=== PATIENT | female | born 1990 | race Caucasian/White ===

== ENCOUNTER 2019-04-10 07:09 | Inpatient (IN) | payer BC ==
[2019-04-10] MEDS ORDERED: Misoprostol 50 MCG (1/2 of 100 MCG) Tab ONE (07:54)
[2019-04-10] MEDS ORDERED: Sodium Chloride 0.9% 10 ML Syringe FLUSH PRN (08:02)
[2019-04-10] MEDS ORDERED: Acetaminophen 325 MG Tab PO PRN (08:02)
[2019-04-10] MEDS ORDERED: fentaNYL 100 MCG/2 ML SDV IVPUSH PRN (08:02)
[2019-04-10] MEDS ORDERED: Ondansetron 4 MG/2 ML SDV IV PRN (08:02)
[2019-04-10] MEDS ORDERED: Calcium Carbonate 500 MG Tab.Chew PO PRN (08:02)
[2019-04-10] MEDS ORDERED: Albuterol 8 GM Inhaler INH PRN (08:07)
[2019-04-10] MEDS ORDERED: ePHEDrine 50 MG/ML SDV IVPUSH PRN (08:09)
[2019-04-10] MEDS ORDERED: Lactated Ringers 1,000 ML IV ONE (08:09)
--- NOTE | 2019-04-10 08:17 | PCM.LDHP ---
L&D History of Present Illness - General Date of Service: 04/10/19 Admit Problem/Dx: Patient Status Order with Admit Dx/Problem 04/10/19 08:02 Patient Status [ADT] Routine Admission Diagnosis/Problem Admission Diagnosis/Problem Term Source of Information: Patient History Limitations: Reports: No Limitations - History of Present Illness Introduction:: 04/10/19 28 yo at 40 5/7 weeks is here for a labor induction for post dates. SVE this am is /. She has not felt contractions at home but is garret every 6-8 min here on the monitor. FHT category 1. 50 mcg of cytotec inserted vaginally. Membranes intact. Pt is GBS negative and all STI testing was negative. Blood type 0+. Pt had an uncomplicated . Anticipate . 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 Para: 0 LMP (Approximate): Psychiatric History: Reports: Anxiety, PTSD Social & Family History - Family History Family Medical History: Noncontributory - Tobacco Use Smoking Status *Q: Never Smoker Second Hand Smoke Exposure: No H&P Review of Systems - Review of Systems: Review Of Systems: See Below General: Reports: No Symptoms HEENT: Reports: No Symptoms Pulmonary: Reports: Cough (asthma) Cardiovascular: Reports: No Symptoms Gastrointestinal: Reports: No Symptoms Genitourinary: Reports: No Symptoms Musculoskeletal: Reports: No Symptoms Skin: Reports: No Symptoms Psychiatric: Reports: No Symptoms Neurological: Reports: No Symptoms Hematologic/Lymphatic: Reports: No Symptoms Immunologic: Reports: No Symptoms L&D Exam - Exam Exam: See Below - Vital Signs Weight: 167 lb 8.821 oz - OB Specific Contraction Intensity: Mild Movement: Active Heart Tones: Present Heart Rate (FHR) Variability: Moderate (6-25 bmp) Presentation: Vertex - Montoya Score Montoya Score Cervix Position: Posterior Montoya Score Consistency: Medium Montoya Score Effacement: 51-70% Montoya Score Dilation: 1-2 cm Montoya Score Infant's Station: -1 ,0 Montoya Score Total: 6 - Exam General: Alert, Oriented HEENT: PERRLA, Conjunctiva Clear, EACs Clear, EOMI, Hearing Intact, Mucosa Moist & [place], Nares Patent, Normal Nasal Septum, Posterior Pharynx Clear, TMs Clear Neck: Supple, Trachea Midline Lungs: Clear to Auscultation, Normal Respiratory Effort Cardiovascular: Regular Rate, Regular Rhythm GI/Abdominal Exam: Normal Bowel Sounds, Soft, Non-Tender, No Organomegaly, No Distention, No Abnormal Bruit, No Mass, Pelvis Stable Rectal Exam: Normal Exam, Normal Rectal Tone Genitourinary: Normal external exam, Normal bimanual exam, Enlarged uterus. No : Vaginal bleeding, Vaginal discharge Back Exam: Normal Inspection, Full Range of Motion Extremities: Normal Inspection, Normal Range of Motion, Non-Tender, No Pedal Edema, Normal Capillary Refill Skin: Warm, Dry, Intact Neurological: Cranial Nerves Intact, Reflexes Equal Bilateral Psychiatric: Alert, Normal Affect, Normal Mood - Patient Data Lab Results Last 24 hrs: Laboratory Results - last 24 hr 04/10/19 04/10/19 Range/Units 07:27 07:35 WBC 11.1 H (4.5-11.0) K/uL RBC 4.25 (3.30-5.50) M/uL Hgb 10.6 L (12.0-15.0) g/dL Hct 34.1 L (36.0-48.0) % MCV 80 (80-98) fL MCH 25 L (27-31) pg MCHC 31 L (32-36) % Plt Count 373 (150-400) K/uL Neut % (Auto) 60 (36-66) % Lymph % (Auto) 23 L (24-44) % [place] % (Auto) 14 H (2-6) % Eos % (Auto) 3 (2-4) % Baso % (Auto) 0 (0-1) % Urine Color Yellow (YELLOW) Urine Appearance Slightly cloudy A (CLEAR) Urine pH 7.0 (5.0-8.0) Ur Specific [place] 1.020 (1.008-1.030) Urine Protein Negative (NEGATIVE) mg/dL Urine Glucose (UA) Negative (NEGATIVE) mg/dL Urine Ketones Negative (NEGATIVE) mg/dL Urine Occult Blood Negative (NEGATIVE) Urine Nitrite Negative (NEGATIVE) Urine Bilirubin Negative (NEGATIVE) Urine Urobilinogen 0.2 (0.2-1.0) EU/dL Ur Leukocyte Esterase Moderate (NEGATIVE) Urine RBC 0-5 (0-5) Urine WBC 20-30 H (0-5) Ur Epithelial Cells Many Amorphous Sediment Not seen Urine Bacteria Many Urine Mucus Few Result Diagrams: 04/10/19 07:35 - Problem List (1) Term SNOMED Code(s): 54053331 ICD Code: Z34.90 - ENCNTR FOR SUPRVSN OF NORMAL , UNSP, UNSP TRIMESTER Status: Acute Current Visit: Yes (2) Elective induction of labor planned SNOMED Code(s): 819605223 ICD Code: [id number] - Status: Acute Current Visit: Yes (3) Mother negative for group B Streptococcus colonization SNOMED Code(s): 785253442, 575040876 ICD Code: QSZ0794 - Status: Acute Current Visit: Yes Problem List Initiated/Reviewed/Updated: Yes Orders Last 24hrs: Active Orders 24 hr Category Date Time Status Patient Status [ADT] Routine ADT 04/10/19 08:02 Ordered Communication Order [RC] ASDIRECTED Care 04/10/19 08:02 Ordered Communication Order [RC] ASDIRECTED Care 04/10/19 08:10 Ordered Heart Tones [RC] PER UNIT ROUTINE Care 04/10/19 08:02 Ordered Insert Urinary Catheter [OM.PC] ASDIRECTED Care 04/10/19 08:15 Ordered Local Anesthetic Infusion Pump [RC] ASDIRECTED Care 04/10/19 08:10 Ordered Notify Provider Vital Signs [RC] PRN Care 04/10/19 08:06 Ordered Notify Provider [RC] PRN Care 04/10/19 08:02 Ordered PCEA Epidural [RC] ASDIRECTED Care 04/10/19 08:10 Ordered PCEA Epidural [RC] ASDIRECTED Care 04/10/19 08:10 Ordered Up ad Silvana [RC] ASDIRECTED Care 04/10/19 08:02 Ordered Urinary Catheter Assessment [RC] ASDIRECTED Care 04/10/19 08:10 Ordered Vital Signs [RC] PER UNIT ROUTINE Care 04/10/19 08:02 Ordered Regular Diet [DIET] Diet 04/10/19 Breakfast Ordered DRUG SCREEN, URINE [URCHEM] Routine Lab 04/10/19 08:02 Ordered UA W/MICROSCOPIC [URIN] Routine Lab 04/10/19 08:02 Ordered Acetaminophen [Tylenol] Med 04/10/19 08:02 Ordered 650 mg PO Q4H PRN Albuterol [Ventolin HFA] Med 04/10/19 08:07 Ordered 2 gm INH Q2H PRN Calcium Carbonate [Tums] Med 04/10/19 08:02 Ordered 1,000 mg PO Q2HR PRN Fluticasone/Salmeterol [Fluticasone-Salmeterol 232-14 Med 04/10/19 21:00 Ordered MCG Powder Inha] 1 puff INH BIDRT Lactated Ringers [Ringers, Lactated] 1,000 ml Med 04/10/19 08:09 Ordered IV .BOLUS Ondansetron [Zofran] Med 04/10/19 08:02 Ordered 4 mg IV Q4H PRN Sodium Chloride 0.9% [Saline Flush] Med 04/10/19 08:02 Ordered 10 ml FLUSH ASDIRECTED PRN ePHEDrine [ePHEDrine sulfate] Med 04/10/19 08:09 Ordered 10 mg IVPUSH ASDIRECTED PRN fentaNYL [Sublimaze] Med 04/10/19 08:02 Ordered 100 mcg IVPUSH Q1H PRN Epidural Catheter Management [OM.PC] Urgent Oth 04/10/19 08:10 Ordered Saline Lock Insert [OM.PC] Routine Oth 04/10/19 08:02 Ordered Resuscitation Status Routine Resus Stat 04/10/19 08:02 Ordered Medication Orders Acetaminophen (Tylenol) 650 mg PO Q4H PRN PRN Reason: Pain (Mild 1-3) and fever Albuterol (Ventolin Hfa) 2 gm INH Q2H PRN PRN Reason: Dyspnea Calcium Carbonate/Glycine (Tums) 1,000 mg PO Q2H PRN PRN Reason: Indigestion Ephedrine Sulfate (Ephedrine Sulfate) 10 mg IVPUSH ASDIRECTED PRN PRN Reason: Hypotension Fentanyl (Sublimaze) 100 mcg IVPUSH Q1H PRN PRN Reason: Pain (moderate 4-6) Lactated Ringer's (Ringers, Lactated) 1,000 mls @ 999 mls/hr IV .BOLUS ONE Stop: 04/10/19 09:09 Ondansetron HCl (Zofran) 4 mg IV Q4H PRN PRN Reason: Nausea/Vomiting Sodium Chloride (Saline Flush) 10 ml FLUSH ASDIRECTED PRN PRN Reason: Keep Vein Open Assessment/Plan Comment:: 04/10/19 Assessment: 28 yo at 40 5/7 weeks here for elective induction of labor SVE /-1, montoya score 6 Category 1 tracing Plan: Anticipate Will recheck cervix at noon and possibly do another dose of Cytotec vaginally vs Pitocin IV Anticipate female infant Nurse to call if patient desires an epidural
[2019-04-10] MEDS: Fluticasone-Salmeterol 232-14 MCG Powder Inhalent INH SCH ×2 (10:01→21:51)
[2019-04-10] MEDS ORDERED: Misoprostol 25 MCG (1/4 of 100 MCG) Tab ONE (12:18)
--- NOTE | 2019-04-10 12:26 | PCM.PNLD ---
Labor Progress Note - VS & Meds Vital Signs: Last Vital Signs Temp 96.6 F 04/10/19 08:00 Pulse 77 04/10/19 09:00 Resp 20 04/10/19 09:00 BP 139/88 04/10/19 09:00 Pulse Ox Active Medications: Current Medications Acetaminophen (Tylenol) 650 mg PO Q4H PRN PRN Reason: Pain (Mild 1-3) and fever Albuterol (Ventolin Hfa) 0 gm INH Q2H PRN PRN Reason: Dyspnea Calcium Carbonate/Glycine (Tums) 1,000 mg PO Q2H PRN PRN Reason: Indigestion Ephedrine Sulfate (Ephedrine Sulfate) 10 mg IVPUSH ASDIRECTED PRN PRN Reason: Hypotension Fentanyl (Sublimaze) 100 mcg IVPUSH Q1H PRN PRN Reason: Pain (moderate 4-6) Ondansetron HCl (Zofran) 4 mg IV Q4H PRN PRN Reason: Nausea/Vomiting Fluticasone/Salmeterol (Fluticasone-Salmeterol 232-14 Mcg Powder Inha) 1 puff INH BIDRT YARITZA Last Admin: 04/10/19 10:01 Dose: 1 puff Sodium Chloride (Saline Flush) 10 ml FLUSH ASDIRECTED PRN PRN Reason: Keep Vein Open Discontinued Medications Lactated Ringer's (Ringers, Lactated) 1,000 mls @ 999 mls/hr IV .BOLUS ONE Stop: 04/10/19 09:09 Misoprostol (Cytotec) Confirm Administered Dose 50 mcg .ROUTE .STK-MED ONE Stop: 04/10/19 07:55 Last Admin: 04/10/19 08:03 Dose: 50 mcg Misoprostol (Cytotec) Confirm Administered Dose 25 mcg .ROUTE .STK-MED ONE Stop: 04/10/19 12:19 - Uterine Contractions Uterine Monitoring Mode: External [place] Contraction Frequency (min): 1-3.5 Contraction Duration (sec): 30-60 Contraction Intensity: Mild Uterine Resting Tone: Soft - Monitoring Heart Rate (FHR) Variability: Moderate (6-25 bmp) Accelerations: Present, 15x15 Decelerations: None Strip Review: Category I - Vaginal Exam Dilation (cm): 1.5 Effacement (Percent): 70 Station: -1 Cervical Position: Posterior Sterile Vaginal Exam Performed By: Henna Sandhu - Labor Progress (Free Text) Labor Progress: 04/10/19 Patient has made very little cervical change. SVE 1.5/-1. Cervix still fairly firm, no bloody show. She is not feeling pain with the contractions but does feel some tightening in her low abdomen. Placed another dose of 25 mcg Cytotec vaginally. Will recheck cervix in 4 hours and if no change will consider discharge home and attempt induction later this week again. Patient agrees to plan. Category 1 tracing.
[2019-04-10] MEDS ORDERED: fentaNYL 100 MCG/2 ML SDV IVPUSH ONE (15:28)
--- NOTE | 2019-04-10 16:48 | PCM.PNLD ---
Labor Progress Note - VS & Meds Vital Signs: Last Vital Signs Temp 96.8 F 04/10/19 12:00 Pulse 87 04/10/19 13:20 Resp 20 04/10/19 13:20 BP 136/73 04/10/19 13:20 Pulse Ox Active Medications: Current Medications Acetaminophen (Tylenol) 650 mg PO Q4H PRN PRN Reason: Pain (Mild 1-3) and fever Albuterol (Ventolin Hfa) 0 gm INH Q2H PRN PRN Reason: Dyspnea Calcium Carbonate/Glycine (Tums) 1,000 mg PO Q2H PRN PRN Reason: Indigestion Ephedrine Sulfate (Ephedrine Sulfate) 10 mg IVPUSH ASDIRECTED PRN PRN Reason: Hypotension Fentanyl (Sublimaze) 100 mcg IVPUSH Q1H PRN PRN Reason: Pain (moderate 4-6) Last Admin: 04/10/19 15:32 Dose: 100 mcg Ondansetron HCl (Zofran) 4 mg IV Q4H PRN PRN Reason: Nausea/Vomiting Fluticasone/Salmeterol (Fluticasone-Salmeterol 232-14 Mcg Powder Inha) 1 puff INH BIDRT YARITZA Last Admin: 04/10/19 10:01 Dose: 1 puff Sodium Chloride (Saline Flush) 10 ml FLUSH ASDIRECTED PRN PRN Reason: Keep Vein Open Discontinued Medications Lactated Ringer's (Ringers, Lactated) 1,000 mls @ 999 mls/hr IV .BOLUS ONE Stop: 04/10/19 09:09 Misoprostol (Cytotec) Confirm Administered Dose 50 mcg .ROUTE .STK-MED ONE Stop: 04/10/19 07:55 Last Admin: 04/10/19 08:03 Dose: 50 mcg Misoprostol (Cytotec) Confirm Administered Dose 25 mcg .ROUTE .STK-MED ONE Stop: 04/10/19 12:19 Last Admin: 04/10/19 12:20 Dose: 25 mcg - Uterine Contractions Uterine Monitoring Mode: External [place] Contraction Frequency (min): 1-2 Contraction Duration (sec): 60-100 Contraction Intensity: Strong Uterine Resting Tone: Soft - Monitoring Heart Rate (FHR) Variability: Moderate (6-25 bmp) Accelerations: Present, 15x15 Decelerations: Early Strip Review: Category I - Vaginal Exam Dilation (cm): 3 Effacement (Percent): 70 Station: -1 Cervical Position: Posterior Sterile Vaginal Exam Performed By: Henna Sandhu - Labor Progress (Free Text) Labor Progress: 04/10/19 Patient not coping well with pain since about 1500, hyperventilating, fentanyl was given with some short relief. Patient decided on an epidural which was just placed. Will recheck patient after epidural sets. Patient was 3/90/0 at 1530 and had SROM of clear fluid.
[2019-04-10] MEDS ORDERED: Ropivacaine 100 ML ONE (16:52)
--- NOTE | 2019-04-10 17:39 | ANES ---
DATE OF SERVICE: 04/10/2019 INDICATION: I was called to the OB floor for a young lady in for an induction requesting a labor epidural, whose at the bedside at approximately 1625 platelet count was noted to be 373. A brief history and physical was done with the patient, even though the patient was not very cooperative in her history and physical. Leana Trent was at the bedside. The patient's history was reviewed. No abnormal bleeding issues. Not on any blood thinners. Risks and benefits were reviewed with the patient and significant other. Verbalized her understanding, wishes to proceed with labor epidural today. TECHNIQUE: The patient then was sat at the edge of the bed. Betadine prep x3 to the lumbar region was done. Sterile drape was placed. 1% lidocaine skin wheal and deep was done. A 17-gauge Tuohy needle was inserted at approximately the L4-L5 position. Loss of resistance was achieved. Negative paresthesia, negative heme, and negative CSF were noted. Catheter was then easily threaded through the [place]. The Tuohy needle was withdrawn and catheter was pulled back to approximately 14 cm. The patient tolerated that without difficulty. After the Tuohy needle was withdrawn and the catheter was pulled back, catheter was secured at the 14 cm peg like I said. I then proceeded to give the patient a 3 mL test dose. The patient was then laid in the supine position with left uterine displacement. After approximately 4- 5 minutes after the test dose, the patient's heart rate was noted to have no significant changes, continued to be in the high 70s, low 80s, and patient was able to move her legs freely. I then proceeded to give the patient 12 mL bolus of 0.2% ropivacaine via the epidural and started her on a 0.2% ropivacaine drip at 12 mL an hour. The patient said she did notice some numbness and tingling and appeared to have at least a little bit of relief prior to leaving. Vital signs were fine after the fluid bolus. Please refer to the nurse's notes for vital signs. We will continue to monitor the patient as needed. Ahmet Garner CRNA /[id number]
[2019-04-10] MEDS ORDERED: Benzocaine 20% Top Spray 56 GM Bottle TOP ONE (18:12)
[2019-04-10] MEDS ORDERED: Docusate Sodium 100 MG Cap PO PRN (18:12)
[2019-04-10] MEDS ORDERED: Lanolin 100% Cream 40 GM Tube TOP ONE ×2 (18:12→22:10)
[2019-04-10] MEDS ORDERED: Witch Hazel Medicated Pads 100/Jar TOP ONE ×2 (18:12→22:11)
[2019-04-10] MEDS ORDERED: Acetaminophen 325 MG Tab, 50 Tab Bulk Bottle PO PRN (18:15)
[2019-04-10] MEDS ORDERED: Ibuprofen 200 MG Tab, 24 Tab Bulk Bottle PO PRN (18:15)
--- NOTE | 2019-04-10 18:30 | PCM.DEL ---
L & D Note - General Info Date of Service: 04/10/19 Mother's Due Date: 04/05/19 - Delivery Note Cervical Ripening Method: Misoprostil Delivery Outcome: Livebirth Delivery Method: Spontaneous Vaginal Delivery-Single Delivery Mode: Vacuum Extraction Presentation: Vertex Nuchal Cord: Present Anesthesia Type: Epidural Amniotic Fluid Description: Clear Episiotomy Type: None Laceration: 1st Degree Suture type: Vicryl Suture size: 3-0 Placenta: Intact, Spontaneous Cord: 3 Vessels Estimated Blood Loss: 250 Resuscitation Needed: Yes : Stimulated, Warmed, Warmer Used Provider: Leana Trent Score 1 min: 3 Score 5 min: 8 Post Delivery Events: Shoulder Dystocia Second Stage Interventions: Reports: Second Nurse Assessed Progress of Descent, Second Nurse Reviewed Contraction Pattern, Second Nurse Reviewed Heart Tones, Encouragement Given, Pushing Ineffectively, Pushing, McRobert's Position , Pushing, Stirrups/Leg Supports Delivery Comments (Free Text/Narrative):: 04/10/19 28 yo G1 now P1 delivered vaginally at 40 5/7 with vacuum assist at 1743 under epidural anesthesia after a Cytotec elective induction of labor. Category 1 tracing through out labor. Patient progressed quickly in the active phase. heart tones during the second stage decreased to 100-110 for a baseline and there were variable decelerations down to the 60-70's. Patient was not pushing effectively. At +2 station a vacuum was applied at 1741 to the sagittal suture 2 cm anterior to the posterior fontanel. There were 2 pop offs with decent progress. The third pull was effective and there was delivery of the head at 1743. At that time there was a 30 second shoulder dystocia that was resolved with Brianne and suprapubic pressure. There was then a tight body cord after delivery up to the nipple line that was clamped and cut and then the baby was delivered and brought immediately to the warmer. Baby was dried and stimulated but after one minute still had poor respiratory effort but a good heart rate. Baby was bagged x 1 min. Apgars 3, 8. The placenta was delivered spontaneously intact with a 3 vessel cord at 1749 and IV pitocin was given. Patient had a first degree perineal laceration that was repaired with 3- 0 vicryl, there were no cervical or vaginal lacerations. EBL 250 mL. FF. Placenta is calcified and a grade 3. Induction Criteria - Montoya Score Montoya Score Dilation: 1-2 cm Montoya Score Effacement: 60-70% Montoya Score Infant's Station: -1 ,0 Montoya Score Consistency: Medium Montoya Score Cervix Position: Posterior Montoay Score Total: 6 Montoya Score Presenting Part: Reports: Cephalic - Induction Gestational Age >/= 39 wks: Yes Estimated Pelvis: Reports: Adequate Reassuring Monitoring Strip: Yes Absence of Tachy Systole: Yes Vacuum Extractor Progress Note - Alternative Labor Strategies Considered Strategies Considered:: Reports: Contraction Intensity Adequate, Empty Bladder Indications Considered:: Reports: Yes Indications:: Reports: Suspicion of Immediate or Potential Compromise Time Out:: Reports: Yes - Patient Prepared Patient Prepared:: Reports: Yes Informed Consent:: Reports: Yes, Verbal Risks: Reports: Yes Risks Include:: Reports: Laceration, Shoulder Dystocia, Maternal Injury Anesthesia/Analgesia Adequate:: Reports: Yes - Probability of Success High Probability of Success:: Reports: Yes Weight Estimated:: Reports: AGA Patient Diabetic:: Reports: No Pelvis Adequate:: Reports: Yes Position:: OA Asynclitic:: Reports: No Station:: +2 - Application Time Maximum Application Time & Number of Pop-Offs Predetermined:: Reports: Yes Total Application Time (min): *max=20min: 2 Number of Times Cup Disengaged:: 2 Type of Vacuum Used:: Reports: Cup: Mushroom type (Kiwi) Vacuum Extraction: Successful - Exit Strategy Exit strategy available:: Reports: Yes and resuscitation teams readily available:: Reports: Yes - General Info Date of Service: 04/10/19 Functional Status: Reports: Pain Controlled - Review of Systems General: Reports: No Symptoms HEENT: Reports: No Symptoms Pulmonary: Reports: No Symptoms Cardiovascular: Reports: No Symptoms Gastrointestinal: Reports: No Symptoms Genitourinary: Reports: No Symptoms Musculoskeletal: Reports: No Symptoms Skin: Reports: No Symptoms Neurological: Reports: No Symptoms Psychiatric: Reports: No Symptoms - Patient Data Vitals - Most Recent: Last Vital Signs Temp 96.8 F 04/10/19 12:00 Pulse 87 04/10/19 13:20 Resp 20 04/10/19 13:20 BP 136/73 04/10/19 13:20 Pulse Ox Weight - Most Recent: 167 lb 8.821 oz I&O - Last 24 Hours: Intake & Output 04/10/19 04/10/19 04/10/19 06:59 14:59 22:59 Intake Total 850 Balance 850 Lab Results Last 24 Hours: Laboratory Results - last 24 hr 04/10/19 04/10/19 Range/Units 07:27 07:35 WBC 11.1 H (4.5-11.0) K/uL RBC 4.25 (3.30-5.50) M/uL Hgb 10.6 L (12.0-15.0) g/dL Hct 34.1 L (36.0-48.0) % MCV 80 (80-98) fL MCH 25 L (27-31) pg MCHC 31 L (32-36) % Plt Count 373 (150-400) K/uL Neut % (Auto) 60 (36-66) % Lymph % (Auto) 23 L (24-44) % [place] % (Auto) 14 H (2-6) % Eos % (Auto) 3 (2-4) % Baso % (Auto) 0 (0-1) % Urine Color Yellow (YELLOW) Urine Appearance Slightly cloudy A (CLEAR) Urine pH 7.0 (5.0-8.0) Ur Specific [place] 1.020 (1.008-1.030) Urine Protein Negative (NEGATIVE) mg/dL Urine Glucose (UA) Negative (NEGATIVE) mg/dL Urine Ketones Negative (NEGATIVE) mg/dL Urine Occult Blood Negative (NEGATIVE) Urine Nitrite Negative (NEGATIVE) Urine Bilirubin Negative (NEGATIVE) Urine Urobilinogen 0.2 (0.2-1.0) EU/dL Ur Leukocyte Esterase Moderate (NEGATIVE) Urine RBC 0-5 (0-5) Urine WBC 20-30 H (0-5) Ur Epithelial Cells Many Amorphous Sediment Not seen Urine Bacteria Many Urine Mucus Few Med Orders - Current: Current Medications Acetaminophen (Tylenol) 650 mg PO Q4H PRN PRN Reason: Pain (Mild 1-3) and fever Acetaminophen (Tylenol Bulk Bottle) 325 mg PO Q4H PRN PRN Reason: Pain Albuterol (Ventolin Hfa) 0 gm INH Q2H PRN PRN Reason: Dyspnea Benzocaine (Zeuk-C-Fyjggmu 20% [place]) 0 gm TOP Q4H ONE Stop: 04/10/19 18:13 Calcium Carbonate/Glycine (Tums) 1,000 mg PO Q2H PRN PRN Reason: Indigestion Docusate Sodium (Colace) 100 mg PO BID PRN PRN Reason: Constipation Emollient Ointment (Lansinoh Hpa) 1 gm TOP ASDIRECTED ONE Stop: 04/10/19 18:13 Ephedrine Sulfate (Ephedrine Sulfate) 10 mg IVPUSH ASDIRECTED PRN PRN Reason: Hypotension Fentanyl (Sublimaze) 100 mcg IVPUSH Q1H PRN PRN Reason: Pain (moderate 4-6) Last Admin: 04/10/19 15:32 Dose: 100 mcg Ibuprofen (Motrin Bulk Bottle) 600 mg PO Q6H PRN PRN Reason: Pain Ondansetron HCl (Zofran) 4 mg IV Q4H PRN PRN Reason: Nausea/Vomiting Fluticasone/Salmeterol (Fluticasone-Salmeterol 232-14 Mcg Powder Inha) 1 puff INH BIDRT YARITZA Last Admin: 04/10/19 10:01 Dose: 1 puff Sodium Chloride (Saline Flush) 10 ml FLUSH ASDIRECTED PRN PRN Reason: Keep Vein Open Witashley Bedoya (Tucks) 1 pad TOP ASDIRECTED ONE Stop: 04/10/19 18:13 Discontinued Medications Lactated Ringer's (Ringers, Lactated) 1,000 mls @ 999 mls/hr IV .BOLUS ONE Stop: 04/10/19 09:09 Ropivacaine (Naropin 0.2%) Confirm Administered Dose 100 mls @ as directed .ROUTE .STK-MED ONE Stop: 04/10/19 16:53 Misoprostol (Cytotec) Confirm Administered Dose 50 mcg .ROUTE .STK-MED ONE Stop: 04/10/19 07:55 Last Admin: 04/10/19 08:03 Dose: 50 mcg Misoprostol (Cytotec) Confirm Administered Dose 25 mcg .ROUTE .STK-MED ONE Stop: 04/10/19 12:19 Last Admin: 04/10/19 12:20 Dose: 25 mcg - Exam General: Alert, Oriented HEENT: Pupils Equal, Pupils Reactive, Mucous Membr. Moist/[place] Neck: Supple Lungs: Clear to Auscultation, Normal Respiratory Effort Cardiovascular: Regular Rate, Regular Rhythm GI/Abdominal Exam: Normal Bowel Sounds, Soft, Non-Tender, No Distention, Pelvis Stable (Female) Exam: Normal External Exam, Normal Bimanual Exam, Cervical Dilatation, Enlarged Uterus, Vaginal Bleeding. No: Cervical Lesions, Vaginal Lesions, Vaginal Tears Back Exam: Normal Inspection, Full Range of Motion Extremities: Normal Inspection, Normal Range of Motion, Non-Tender, No Pedal Edema, Normal Capillary Refill Skin: Warm, Dry, Intact Wound/Incisions: Healing Well Neurological: No New Focal Deficit Psy/Mental Status: Alert, Normal Affect, Normal Mood - Problem List & Annotations (1) Term SNOMED Code(s): 18276363 Code(s): Z34.90 - ENCNTR FOR SUPRVSN OF NORMAL , UNSP, UNSP TRIMESTER Status: Acute Current Visit: Yes (2) Elective induction of labor planned SNOMED Code(s): 868031944 Code(s): XNT0405 - Status: Acute Current Visit: Yes (3) Mother negative for group B Streptococcus colonization SNOMED Code(s): 138277736, 360533925 Code(s): DVI1436 - Status: Acute Current Visit: Yes (4) Vacuum-assisted vaginal delivery SNOMED Code(s): 62204041835223418 Code(s): Z37.9 - OUTCOME OF DELIVERY, UNSPECIFIED Status: Acute Current Visit: Yes (5) started SNOMED Code(s): 816732688 Code(s): NFZ7877 - Status: Acute Current Visit: Yes (6) First degree laceration of perineum during delivery, SNOMED Code(s): 877486371 Code(s): O70.0 - FIRST DEGREE PERINEAL LACERATION DURING DELIVERY Status: Acute Current Visit: Yes (7) Shoulder dystocia during labor and delivery, delivered SNOMED Code(s): 506061576, 020554688 Code(s): O66.0 - OBSTRUCTED LABOR DUE TO SHOULDER DYSTOCIA Status: Acute Current Visit: Yes - Problem List Review Problem List Initiated/Reviewed/Updated: Yes - My Orders Last 24 Hours: My Active Orders 04/10/19 08:02 Patient Status [ADT] Routine Communication Order [RC] ASDIRECTED Heart Tones [RC] PER UNIT ROUTINE Notify Provider [RC] PRN Up ad Silvana [RC] ASDIRECTED Vital Signs [RC] PER UNIT ROUTINE DRUG SCREEN, URINE [URCHEM] Routine UA W/MICROSCOPIC [URIN] Routine Acetaminophen [Tylenol] 650 mg PO Q4H PRN Calcium Carbonate [Tums] 1,000 mg PO Q2H PRN Ondansetron [Zofran] 4 mg IV Q4H PRN Sodium Chloride 0.9% [Saline Flush] 10 ml FLUSH ASDIRECTED PRN fentaNYL [Sublimaze] 100 mcg IVPUSH Q1H PRN Saline Lock Insert [OM.PC] Routine Resuscitation Status Routine 04/10/19 08:06 Notify Provider Vital Signs [RC] PRN 04/10/19 08:07 Albuterol [Ventolin HFA] 0 gm INH Q2H PRN 04/10/19 08:09 ePHEDrine [ePHEDrine sulfate] 10 mg IVPUSH ASDIRECTED PRN 04/10/19 08:10 Communication Order [RC] ASDIRECTED Local Anesthetic Infusion Pump [RC] ASDIRECTED PCEA Epidural [RC] ASDIRECTED PCEA Epidural [RC] ASDIRECTED Urinary Catheter Assessment [RC] ASDIRECTED Epidural Catheter Management [OM.PC] Urgent 04/10/19 08:15 Insert Urinary Catheter [OM.PC] ASDIRECTED 04/10/19 08:30 Fluticasone/Salmeterol [Fluticasone-Salmeterol 232-14 MCG Powder Inha] 1 puff INH BIDRT 04/10/19 18:12 Patient Status [ADT] Routine Vital Signs [RC] PFP Consult to Device Repair Technician [CONS] Routine Benzocaine [Gwsi-D-Aeicewg 20% [place]] See Dose Instructions TOP Q4H ONE Docusate Sodium [Colace] 100 mg PO BID PRN Lanolin [Lansinoh HPA] 1 gm TOP ASDIRECTED ONE [place] [Tucks] 1 pad TOP ASDIRECTED ONE Assess Lochia [WOMSER] Per Unit Routine Assess Uterine Involution [WOMSER] Per Unit Routine 04/10/19 18:13 Ice Therapy [OM.PC] Per Unit Routine Perineal Care [OM.PC] Per Unit Routine Peripheral IV Discontinue [OM.PC] Routine Sitz Bath [OM.PC] Per Unit Routine 04/10/19 18:15 Acetaminophen [Tylenol Bulk Bottle] 325 mg PO Q4H PRN Ibuprofen [Motrin Bulk Bottle] 600 mg PO Q6H PRN 04/10/19 Breakfast Regular Diet [DIET] 04/11/19 06:00 CBC WITH AUTO DIFF [HEME] Routine - Assessment Assessment:: 04/10/19 28 yo delivered female after vacuum assisted delivery First degree laceration repaired EBL 250 mL, FF AVSS - Plan Plan:: 04/10/19 Assessment: 28 yo at 40 5/7 weeks here for elective induction of labor SVE /-1, montoya score 6 Category 1 tracing Plan: Anticipate Will recheck cervix at noon and possibly do another dose of Cytotec vaginally vs Pitocin IV Anticipate female infant Nurse to call if patient desires an epidural 04/10/19 Routine cares Perineal care Lloyd kit for pain as needed support Anticipate 24-48 hour stay
[2019-04-10] MEDS ORDERED: Benzocaine 20% Top Spray 56 GM Bottle ONE (22:09)
[2019-04-11] MEDS ORDERED: Acetaminophen 325 MG Tab, 50 Tab Bulk Bottle PO PRN (07:32)
--- NOTE | 2019-04-11 09:09 | PCM.PNPP ---
- General Info Date of Service: 04/11/19 Functional Status: Reports: Pain Controlled - Review of Systems General: Reports: No Symptoms HEENT: Reports: No Symptoms Pulmonary: Reports: No Symptoms Cardiovascular: Reports: No Symptoms Gastrointestinal: Reports: No Symptoms Genitourinary: Reports: No Symptoms Musculoskeletal: Reports: No Symptoms Skin: Reports: No Symptoms Neurological: Reports: No Symptoms Psychiatric: Reports: No Symptoms - General Info Date of Service: 04/11/19 - Patient Data Vital Signs - Most Recent: Last Vital Signs Temp 96 F 04/11/19 07:11 Pulse 68 04/11/19 07:11 Resp 16 04/11/19 07:11 BP 114/68 04/11/19 07:11 Pulse Ox 99 04/11/19 07:11 Weight - Most Recent: 167 lb 8.821 oz Lab Results - Last 24 Hours: Laboratory Results - last 24 hr 04/10/19 04/11/19 Range/Units 19:21 04:30 WBC 18.3 H (4.5-11.0) K/uL RBC 4.01 (3.30-5.50) M/uL Hgb 10.1 L (12.0-15.0) g/dL Hct 32.1 L (36.0-48.0) % MCV 80 (80-98) fL MCH 25 L (27-31) pg MCHC 32 (32-36) % Plt Count 312 (150-400) K/uL Neut % (Auto) 72 H (36-66) % Lymph % (Auto) 16 L (24-44) % [place] % (Auto) 11 H (2-6) % Eos % (Auto) 1 L (2-4) % Baso % (Auto) 0 (0-1) % Urine Opiates Screen Negative (NEGATIVE) Ur Oxycodone Screen Negative (NEGATIVE) Urine Methadone Screen Negative (NEGATIVE) Ur Propoxyphene Screen Negative (NEGATIVE) Ur Barbiturates Screen Negative (NEGATIVE) Ur Tricyclics Screen Negative (NEGATIVE) Ur Phencyclidine Scrn Negative (NEGATIVE) Ur Amphetamine Screen Negative (NEGATIVE) U Methamphetamines Scrn Negative (NEGATIVE) Urine MDMA Screen Negative (NEGATIVE) U Benzodiazepines Scrn Negative (NEGATIVE) U Cocaine Metab Screen Negative (NEGATIVE) U Marijuana (THC) Screen Negative (NEGATIVE) Med Orders - Current: Current Medications Acetaminophen (Tylenol Bulk Bottle) 325 - 650 mg PO Q4H PRN PRN Reason: Pain Albuterol (Ventolin Hfa) 0 gm INH Q2H PRN PRN Reason: Dyspnea Calcium Carbonate/Glycine (Tums) 1,000 mg PO Q2H PRN PRN Reason: Indigestion Docusate Sodium (Colace) 100 mg PO BID PRN PRN Reason: Constipation Ephedrine Sulfate (Ephedrine Sulfate) 10 mg IVPUSH ASDIRECTED PRN PRN Reason: Hypotension Fentanyl (Sublimaze) 100 mcg IVPUSH Q1H PRN PRN Reason: Pain (moderate 4-6) Last Admin: 04/10/19 15:32 Dose: 100 mcg Oxytocin/Sodium Chloride (Pitocin In Ns 20 Units/1,000 Ml) 20 unit in 1,000 mls @ 2,997 mls/hr IV ASDIRECTED YARITZA Last Admin: 04/10/19 17:49 Dose: 999 munits/min, 2,997 mls/hr Ibuprofen (Motrin Bulk Bottle) 600 mg PO Q6H PRN PRN Reason: Pain Last Admin: 04/10/19 21:57 Dose: 1 bottle Ondansetron HCl (Zofran) 4 mg IV Q4H PRN PRN Reason: Nausea/Vomiting Fluticasone/Salmeterol (Fluticasone-Salmeterol 232-14 Mcg Powder Inha) 1 puff INH BIDRT YARITZA Last Admin: 04/10/19 21:51 Dose: 1 puff Sodium Chloride (Saline Flush) 10 ml FLUSH ASDIRECTED PRN PRN Reason: Keep Vein Open Discontinued Medications Acetaminophen (Tylenol) 650 mg PO Q4H PRN PRN Reason: Pain (Mild 1-3) and fever Last Admin: 04/10/19 21:58 Dose: 650 mg Benzocaine (Lpel-V-Qmywpvq 20% [place]) 0 gm TOP Q4H ONE Stop: 04/10/19 18:13 Last Admin: 04/10/19 22:14 Dose: 1 applic Benzocaine (Shus-L-Ngjioyy 20% [place]) Confirm Administered Dose 56 gm .ROUTE .STK-MED ONE Stop: 04/10/19 22:10 Last Admin: 04/10/19 22:15 Dose: Not Given Emollient Ointment (Lansinoh Hpa) 1 gm TOP ASDIRECTED ONE Stop: 04/10/19 18:13 Last Admin: 04/10/19 22:12 Dose: 1 applic Emollient Ointment (Lansinoh Hpa) Confirm Administered Dose 40 gm TOP .STK-MED ONE Stop: 04/10/19 22:11 Last Admin: 04/10/19 22:15 Dose: Not Given Lactated Ringer's (Ringers, Lactated) 1,000 mls @ 999 mls/hr IV .BOLUS ONE Stop: 04/10/19 09:09 Last Admin: 04/10/19 15:35 Dose: 999 mls/hr Ropivacaine (Naropin 0.2%) Confirm Administered Dose 100 mls @ as directed .ROUTE .STK-MED ONE Stop: 04/10/19 16:53 Misoprostol (Cytotec) Confirm Administered Dose 50 mcg .ROUTE .STK-MED ONE Stop: 04/10/19 07:55 Last Admin: 04/10/19 08:03 Dose: 50 mcg Misoprostol (Cytotec) Confirm Administered Dose 25 mcg .ROUTE .STK-MED ONE Stop: 04/10/19 12:19 Last Admin: 04/10/19 12:20 Dose: 25 mcg Witch [place] (Tucks) 1 pad TOP ASDIRECTED ONE Stop: 04/10/19 18:13 Last Admin: 04/10/19 22:13 Dose: 1 applic Witch [place] (Tucks) Confirm Administered Dose 1 pad TOP .STK-MED ONE Stop: 04/10/19 22:12 Last Admin: 04/10/19 22:15 Dose: Not Given - Interaction Infant Disposition, : [place] in Room with Family Infant Interaction: Holding Infant Feeding: Breastfed ; Nursed Well Support Person: , Mother - Recovery Exam Fundal Tone: Firm Fundal Level: At Umbilicus Fundal Placement: Midline Lochia Amount: Small Lochia Color: Rubra/Red Perineum Description: Intact, Minimal Bruising/Swelling Episiotomy/Laceration: Approximated Bladder Status: Voiding Urinary Elimination: Voided - Exam General: Alert, Oriented HEENT: Pupils Equal, Pupils Reactive, Mucous Membr. Moist/[place] Neck: Supple Lungs: Clear to Auscultation, Normal Respiratory Effort Cardiovascular: Regular Rate, Regular Rhythm GI/Abdominal Exam: Normal Bowel Sounds, Soft, Non-Tender, No Organomegaly, No Distention, No Abnormal Bruit, No Mass, Pelvis Stable Extremities: Normal Inspection, Normal Range of Motion, Non-Tender, No Pedal Edema, Normal Capillary Refill Skin: Warm, Dry, Intact Neurological: No New Focal Deficit Psy/Mental Status: Alert, Normal Affect, Normal Mood - Problem List & Annotations (1) Term SNOMED Code(s): 21812450 Code(s): Z34.90 - ENCNTR FOR SUPRVSN OF NORMAL , UNSP, UNSP TRIMESTER Status: Acute Current Visit: Yes (2) Elective induction of labor planned SNOMED Code(s): 046582111 Code(s): EMC7292 - Status: Acute Current Visit: Yes (3) Mother negative for group B Streptococcus colonization SNOMED Code(s): 042922961, 644282024 Code(s): CFW8100 - Status: Acute Current Visit: Yes (4) Vacuum-assisted vaginal delivery SNOMED Code(s): 90236416170418238 Code(s): Z37.9 - OUTCOME OF DELIVERY, UNSPECIFIED Status: Acute Current Visit: Yes (5) started SNOMED Code(s): 278502852 Code(s): KAN6149 - Status: Acute Current Visit: Yes (6) First degree laceration of perineum during delivery, SNOMED Code(s): 304706870 Code(s): O70.0 - FIRST DEGREE PERINEAL LACERATION DURING DELIVERY Status: Acute Current Visit: Yes (7) Shoulder dystocia during labor and delivery, delivered SNOMED Code(s): 133232108, 923107693 Code(s): O66.0 - OBSTRUCTED LABOR DUE TO SHOULDER DYSTOCIA Status: Acute Current Visit: Yes - Problem List Review Problem List Initiated/Reviewed/Updated: Yes - My Orders Last 24 Hours: My Active Orders 04/10/19 08:06 Notify Provider Vital Signs [RC] PRN 04/10/19 08:07 Albuterol [Ventolin HFA] 0 gm INH Q2H PRN 04/10/19 08:09 ePHEDrine [ePHEDrine sulfate] 10 mg IVPUSH ASDIRECTED PRN 04/10/19 08:10 Epidural Catheter Management [OM.PC] Urgent 04/10/19 08:15 Insert Urinary Catheter [OM.PC] ASDIRECTED 04/10/19 08:30 Fluticasone/Salmeterol [Fluticasone-Salmeterol 232-14 MCG Powder Inha] 1 puff INH BIDRT 04/10/19 17:49 Oxytocin/Normal Saline [Pitocin in NS 20 Units/1,000 ML] 20 unit in 1,000 ml IV ASDIRECTED 04/10/19 18:12 Patient Status [ADT] Routine Consult to Environmental Services Coordinator [CONS] Routine Docusate Sodium [Colace] 100 mg PO BID PRN Assess Lochia [WOMSER] Per Unit Routine Assess Uterine Involution [WOMSER] Per Unit Routine 04/10/19 18:13 Ice Therapy [OM.PC] Per Unit Routine Perineal Care [OM.PC] Per Unit Routine Peripheral IV Discontinue [OM.PC] Routine Sitz Bath [OM.PC] Per Unit Routine 04/10/19 18:15 Ibuprofen [Motrin Bulk Bottle] 600 mg PO Q6H PRN 04/11/19 07:32 Acetaminophen [Tylenol Bulk Bottle] 325 - 650 mg PO Q4H PRN 04/12/19 06:00 CBC WITH AUTO DIFF [HEME] Routine - Assessment Assessment:: 04/10/19 28 yo delivered female infant after vacuum assisted delivery First degree laceration repaired EBL 250 mL, FF AVSS 04/11/19 PP day 1 FF bleeding scant VSS WBC count 18.1, recheck tomorrow am, afebrile going okay, has latched a few times, needs more help AVSS Perineum sore but Lloyd kit is keeping pain under control - Plan Plan:: 04/10/19 Assessment: 28 yo at 40 5/7 weeks here for elective induction of labor SVE /-1, montoya score 6 Category 1 tracing Plan: Anticipate Will recheck cervix at noon and possibly do another dose of Cytotec vaginally vs Pitocin IV Anticipate female Nurse to call if patient desires an epidural 04/10/19 Routine cares Perineal care Lloyd kit for pain as needed support Anticipate 24-48 hour stay 04/11/19 Routine cares support today Anticipate discharge tomorrow Recheck WBC count in am
[2019-04-11] MEDS: Fluticasone-Salmeterol 232-14 MCG Powder Inhalent INH SCH (09:25)
[2019-04-12] MEDS: Fluticasone-Salmeterol 232-14 MCG Powder Inhalent INH SCH ×2 (01:02→09:02)
--- NOTE | 2019-04-12 08:34 | PCM.PNPP ---
- General Info Date of Service: 04/12/19 Functional Status: Reports: Pain Controlled - Review of Systems General: Reports: No Symptoms HEENT: Reports: No Symptoms Pulmonary: Reports: No Symptoms Cardiovascular: Reports: No Symptoms Gastrointestinal: Reports: No Symptoms Genitourinary: Reports: No Symptoms Musculoskeletal: Reports: No Symptoms Skin: Reports: No Symptoms Neurological: Reports: No Symptoms Psychiatric: Reports: No Symptoms - General Info Date of Service: 04/12/19 - Patient Data Vital Signs - Most Recent: Last Vital Signs Temp 35.6 C 04/12/19 07:22 Pulse 100 04/12/19 07:22 Resp 18 04/12/19 07:22 BP 128/75 04/12/19 07:22 Pulse Ox 99 04/12/19 07:22 Weight - Most Recent: 76 kg Lab Results - Last 24 Hours: Laboratory Results - last 24 hr 04/12/19 Range/Units 05:58 WBC 13.5 H (4.5-11.0) K/uL RBC 4.05 (3.30-5.50) M/uL Hgb 10.1 L (12.0-15.0) g/dL Hct 32.7 L (36.0-48.0) % MCV 81 (80-98) fL MCH 25 L (27-31) pg MCHC 31 L (32-36) % Plt Count 348 (150-400) K/uL Neut % (Auto) 70 H (36-66) % Lymph % (Auto) 19 L (24-44) % [place] % (Auto) 10 H (2-6) % Eos % (Auto) 2 (2-4) % Baso % (Auto) 0 (0-1) % Med Orders - Current: Current Medications Acetaminophen (Tylenol Bulk Bottle) 325 - 650 mg PO Q4H PRN PRN Reason: Pain Albuterol (Ventolin Hfa) 0 gm INH Q2H PRN PRN Reason: Dyspnea Calcium Carbonate/Glycine (Tums) 1,000 mg PO Q2H PRN PRN Reason: Indigestion Docusate Sodium (Colace) 100 mg PO BID PRN PRN Reason: Constipation Ephedrine Sulfate (Ephedrine Sulfate) 10 mg IVPUSH ASDIRECTED PRN PRN Reason: Hypotension Fentanyl (Sublimaze) 100 mcg IVPUSH Q1H PRN PRN Reason: Pain (moderate 4-6) Last Admin: 04/10/19 15:32 Dose: 100 mcg Oxytocin/Sodium Chloride (Pitocin In Ns 20 Units/1,000 Ml) 20 unit in 1,000 mls @ 2,997 mls/hr IV ASDIRECTED [facility] Last Admin: 04/10/19 17:49 Dose: 999 munits/min, 999 mls/hr Ibuprofen (Motrin Bulk Bottle) 600 mg PO Q6H PRN PRN Reason: Pain Last Admin: 04/10/19 21:57 Dose: 1 bottle Ondansetron HCl (Zofran) 4 mg IV Q4H PRN PRN Reason: Nausea/Vomiting Fluticasone/Salmeterol (Fluticasone-Salmeterol 232-14 Mcg Powder Inha) 1 puff INH BIDRT [facility] Last Admin: 04/12/19 01:02 Dose: Not Given Sodium Chloride (Saline Flush) 10 ml FLUSH ASDIRECTED PRN PRN Reason: Keep Vein Open Discontinued Medications Acetaminophen (Tylenol) 650 mg PO Q4H PRN PRN Reason: Pain (Mild 1-3) and fever Last Admin: 04/10/19 21:58 Dose: 650 mg Benzocaine (Gryj-T-Owjkpvu 20% [place]) 0 gm TOP Q4H ONE Stop: 04/10/19 18:13 Last Admin: 04/10/19 22:14 Dose: 1 applic Benzocaine (Qsxg-Y-Hiviows 20% [place]) Confirm Administered Dose 56 gm .ROUTE .STK-MED ONE Stop: 04/10/19 22:10 Last Admin: 04/10/19 22:15 Dose: Not Given Emollient Ointment (Lansinoh Hpa) 1 gm TOP ASDIRECTED ONE Stop: 04/10/19 18:13 Last Admin: 04/10/19 22:12 Dose: 1 applic Emollient Ointment (Lansinoh Hpa) Confirm Administered Dose 40 gm TOP .STK-MED ONE Stop: 04/10/19 22:11 Last Admin: 04/10/19 22:15 Dose: Not Given Lactated Ringer's (Ringers, Lactated) 1,000 mls @ 999 mls/hr IV .BOLUS ONE Stop: 04/10/19 09:09 Last Admin: 04/10/19 15:35 Dose: 999 mls/hr Ropivacaine (Naropin 0.2%) Confirm Administered Dose 100 mls @ as directed .ROUTE .STK-MED ONE Stop: 04/10/19 16:53 Misoprostol (Cytotec) Confirm Administered Dose 50 mcg .ROUTE .STK-MED ONE Stop: 04/10/19 07:55 Last Admin: 04/10/19 08:03 Dose: 50 mcg Misoprostol (Cytotec) Confirm Administered Dose 25 mcg .ROUTE .STK-MED ONE Stop: 04/10/19 12:19 Last Admin: 04/10/19 12:20 Dose: 25 mcg [place] (Tucks) 1 pad TOP ASDIRECTED ONE Stop: 04/10/19 18:13 Last Admin: 04/10/19 22:13 Dose: 1 applic [place] (Tucks) Confirm Administered Dose 1 pad TOP .STK-MED ONE Stop: 04/10/19 22:12 Last Admin: 04/10/19 22:15 Dose: Not Given - Infant Interaction Infant Disposition, : in Room with Family Interaction: Holding Infant Feeding: Breastfed ; Nursed Well Support Person: , Mother - Recovery Exam Fundal Tone: Firm Fundal Level: At Umbilicus Fundal Placement: Midline Lochia Amount: Small Lochia Color: Rubra/Red Perineum Description: Intact, Minimal Bruising/Swelling Episiotomy/Laceration: Approximated Bladder Status: Voiding Urinary Elimination: Voided - Exam General: Alert, Oriented HEENT: Pupils Equal Neck: Supple Lungs: Clear to Auscultation, Normal Respiratory Effort Cardiovascular: Regular Rate, Regular Rhythm GI/Abdominal Exam: Normal Bowel Sounds, Soft, Non-Tender, No Organomegaly, No Distention, No Abnormal Bruit, No Mass, Pelvis Stable Extremities: Normal Inspection, Normal Range of Motion, Non-Tender, No Pedal Edema, Normal Capillary Refill Skin: Warm, Dry, Intact Neurological: No New Focal Deficit Psy/Mental Status: Alert, Normal Affect, Normal Mood - Problem List & Annotations (1) started SNOMED Code(s): 025304277 Code(s): XVX4841 - Status: Acute Current Visit: Yes (2) Elective induction of labor planned SNOMED Code(s): 040208770 Code(s): RIV3928 - Status: Acute Current Visit: Yes (3) First degree laceration of perineum during delivery, SNOMED Code(s): 906693956 Code(s): O70.0 - FIRST DEGREE PERINEAL LACERATION DURING DELIVERY Status: Acute Current Visit: Yes (4) Mother negative for group B Streptococcus colonization SNOMED Code(s): 126319197, 240341742 Code(s): GAV2726 - Status: Acute Current Visit: Yes (5) Shoulder dystocia during labor and delivery, delivered SNOMED Code(s): 976598410, 898120991 Code(s): O66.0 - OBSTRUCTED LABOR DUE TO SHOULDER DYSTOCIA Status: Acute Current Visit: Yes (6) Term SNOMED Code(s): 98918791 Code(s): Z34.90 - ENCNTR FOR SUPRVSN OF NORMAL , UNSP, UNSP TRIMESTER Status: Acute Current Visit: Yes (7) Vacuum-assisted vaginal delivery SNOMED Code(s): 14111681229717813 Code(s): Z37.9 - OUTCOME OF DELIVERY, UNSPECIFIED Status: Acute Current Visit: Yes - Problem List Review Problem List Initiated/Reviewed/Updated: Yes - Assessment Assessment:: 04/10/19 28 yo delivered female after vacuum assisted delivery First degree laceration repaired EBL 250 mL, FF AVSS 04/11/19 PP day 1 FF bleeding scant VSS WBC count 18.1, recheck tomorrow am, afebrile going okay, has latched a few times, needs more help AVSS Perineum sore but Lloyd kit is keeping pain under control 04/12/19 PP day 2 FF bleeding scant Perineum well approximated WBC 13.5 today, Hgb 10.1 going okay, needs support - Plan Plan:: 04/10/19 Assessment: 28 yo at 40 5/7 weeks here for elective induction of labor SVE /-1, montoya score 6 Category 1 tracing Plan: Anticipate Will recheck cervix at noon and possibly do another dose of Cytotec vaginally vs Pitocin IV Anticipate female infant Nurse to call if patient desires an epidural 04/10/19 Routine cares Perineal care Lloyd kit for pain as needed support Anticipate 24-48 hour stay 04/11/19 Routine cares support today Anticipate discharge tomorrow Recheck WBC count in am 04/12/19 Routine cares support today Anticipate discharge today 6 week PP check
== END 2019-04-12 18:22 | disposition home or self-care (01) | DRG 560 ==
LOC: JP.OB 07:09 → JP.MS 10:19 → JP.OB 10:20 → OBSVTOIN 17:43 → JP.MS 21:00
PROVIDERS: ADMIT Nurse Practitioner Family; ATTEND Nurse Practitioner Family
PROC: 10D07Z6 Extraction of Products of Conception, Vacuum, Via Natural or Artificial Opening (ICD-10-PCS; principal; 2019-04-10)
PROC: 0HQ9XZZ Repair Perineum Skin, External Approach (ICD-10-PCS; 2019-04-10)
PROC: 3E033VJ Introduction of Other Hormone into Peripheral Vein, Percutaneous Approach (ICD-10-PCS; 2019-04-10)
PROC: 3E0S3BZ Introduction of Anesthetic Agent into Epidural Space, Percutaneous Approach (ICD-10-PCS; 2019-04-10)
PROC: 00HU33Z Insertion of Infusion Device into Spinal Canal, Percutaneous Approach (ICD-10-PCS; 2019-04-10)
DX: O48.0 Post-term pregnancy (principal); O70.0 First degree perineal laceration during delivery; O66.0 Obstructed labor due to shoulder dystocia; Z37.0 Single live birth; Z3A.40 40 weeks gestation of pregnancy; O76 Abnormality in fetal heart rate and rhythm complicating labor and delivery
CPT/HCPCS: 36415; 59409; 80305-QW; 81001; 85025; 94640; 99211; A9270-GY; J2590; J2795; J3010; J7120

== ENCOUNTER 2019-08-18 14:32 | Emergency (ER) | payer BC ==
--- NOTE | 2019-08-18 16:06 | EDM.PDOC ---
ED HPI GENERAL MEDICAL PROBLEM - General Chief Complaint: ENT Problem Stated Complaint: SORE/SWOLLEN THROAT Time Seen by Provider: 08/18/19 16:19 Source of Information: Reports: Patient, Family History Limitations: Reports: No Limitations - History of Present Illness INITIAL COMMENTS - FREE TEXT/NARRATIVE: pt has a sore swollen throat. That started about 4-5 days ago. Onset: Other (symptoms started 5 days ago and the throat is more sore now. Pt is a nuring mother. ) Duration: Day(s): Location: Reports: Face, Generalized Associated Symptoms: Reports: Cough, Fever/Chills, Other (pt has temps up to 101. ) - Related Data Allergies Allergy/AdvReac Type Severity Reaction Status Date / Time No Known Allergies Allergy Verified 08/18/19 14:46 Home Meds: Home Meds Albuterol [Ventolin HFA] 1 puff IN QID 04/10/19 [History] Fluticasone/Salmeterol [Advair 100-50] 2 puff INH BID 04/10/19 [History] Omeprazole Magnesium [Prilosec Otc] 20 mg PO DAILY 04/10/19 [History] Pnv No.103/Folic/Om3s/Fish Oil [ Gummies] 2 each PO DAILY 04/10/19 [ History] Sertraline [Zoloft] 25 tab PO DAILY 04/10/19 [History] Past Medical History Respiratory History: Reports: Asthma [employer] History: Reports: Psychiatric History: Reports: Anxiety, PTSD Social & Family History - Family History Family Medical History: Noncontributory - Tobacco Use Smoking Status *Q: Never Smoker ED ROS ENT - Review of Systems Review Of Systems: See Below Constitutional: Reports: Fever, Chills, Malaise HEENT: Reports: Throat Pain Respiratory: Reports: Cough Cardiovascular: Reports: No Symptoms Endocrine: Reports: No Symptoms GI/Abdominal: Reports: No Symptoms : Reports: No Symptoms Musculoskeletal: Reports: No Symptoms ED EXAM, ENT - Physical Exam Exam: See Below Text/Narrative:: pt arrived with pain in the throat area and swollen glands. This has been going on foR aBOUT 4-5 DAYS. sHE IS FEElING EXHAUSTED. Exam Limited By: No Limitations General Appearance: Alert, Anxious, Mild Distress Ears: Normal TMs Nose: Normal Inspection Mouth/Throat: Tonsillar Erythema, Uvular Edema Head: Atraumatic Neck: Lymphadenopathy (R), Lymphadenopathy (L) Respiratory/Chest: No Respiratory Distress Cardiovascular: Regular Rate, Rhythm GI/Abdominal: Soft, Non-Tender (Female) Exam: Deferred Course - Vital Signs Last Recorded V/S: Last Vital Signs Temp 36.9 C 08/18/19 14:51 Pulse 85 08/18/19 14:51 Resp 16 08/18/19 14:51 BP 135/73 08/18/19 14:51 Pulse Ox 98 08/18/19 14:51 - Orders/Labs/Meds Orders: Active Orders 24 hr Category Date Time Status CULTURE STREP A CONFIRMATION [] Stat Lab 08/18/19 14:52 Results STREP SCRN A RAPID W CULT CONF [] Stat Lab 08/18/19 14:52 Results Labs: Laboratory Tests 08/18/19 Range/Units 15:34 WBC 8.7 (4.5-11.0) K/uL RBC 4.96 (3.30-5.50) M/uL Hgb 13.5 D (12.0-15.0) g/dL Hct 42.1 (36.0-48.0) % MCV 85 (80-98) fL MCH 27 (27-31) pg MCHC 32 (32-36) % Plt Count 360 (150-400) K/uL Neut % (Auto) 62 (36-66) % Lymph % (Auto) 27 (24-44) % [place] % (Auto) 8 H (2-6) % Eos % (Auto) 3 (2-4) % Baso % (Auto) 0 (0-1) % - Re-Assessments/Exams Free Text/Narrative Re-Assessment/Exam: 08/18/19 16:31 PT HAS A NEG STREPT AND A NEG INFLU. sHE HAS HAD SYMPTOMS FOR 5 DAYS SO WILL TREAT WITH ANTIBIOTICS. Departure - Departure Time of Disposition: 16:25 Disposition: Home, Self-Care 01 Condition: Fair Clinical Impression: Pharyngitis - Discharge Information Instructions: Pharyngitis, [id number] Referrals: Leana Trent CNM [Primary Care Provider] - Forms: ED Department Discharge Care Plan Goals: push fluids, tylenol and motrin for fever and body aches, amoxicillin 500mg tid for 10 days. Sepsis Event Note - Evaluation Sepsis Screening Result: No Definite Risk - Focused Exam Date Exam was Performed: 08/19/19 Time Exam was Performed: 07:24 - My Orders Last 24 Hours: My Active Orders 08/18/19 14:52 CULTURE STREP A CONFIRMATION [RM] Stat STREP SCRN A RAPID W CULT CONF [RM] Stat - Assessment/Plan Last 24 Hours: My Active Orders 08/18/19 14:52 CULTURE STREP A CONFIRMATION [RM] Stat STREP SCRN A RAPID W CULT CONF [] Stat
== END 2019-08-18 16:45 | disposition home or self-care (01) ==
LOC: JP.ED 14:32
DX: J02.9 Acute pharyngitis, unspecified (principal); F41.9 Anxiety disorder, unspecified; Z79.899 Other long term (current) drug therapy
CPT/HCPCS: 36415; 85025; 87081; 87804; 87804-59; 87880-QW; 99283